=== PATIENT | female | born 1980 | race Caucasian/White ===

== ENCOUNTER 2018-11-25 22:16 | Emergency (ER) | payer OTHER ==
[~2018-11-25] VITALS: Ht 180.3 cm; Wt 90.7 kg
== END 2018-11-26 00:27 | disposition home or self-care (01) ==
LOC: ER 22:16
DX: S51.811A Laceration without foreign body of right forearm, initial encounter (principal); W45.8XXA Other foreign body or object entering through skin, initial encounter; Y93.89 Activity, other specified; Y92.89 Other specified places as the place of occurrence of the external cause; Y99.8 Other external cause status